=== PATIENT | male | born 1960 | race Caucasian/White ===

== ENCOUNTER 2018-01-09 09:49 | Emergency (ER) | payer OTHER ==
[~2018-01-09] VITALS: Ht 182.9 cm; Wt 101.2 kg
[2018-01-09 11:20] LABS: HEMATOCRIT 39.3 % (38.0-50.0); HEMOGLOBIN 12.5 G/DL (12.5-16.6); MCH 31.4 PG (29.0-34.0); MCHC 31.8 G/DL (30.0-36.0); MCV 98.7 FL (86-99); PLATELET COUNT 250 K/uL (156-360); RBC DIS.WIDTH-CV 13.7 % (11.8-14.6); RBC DIS.WIDTH-SD 50.2 % (39-53); RED BLOOD COUNT 3.98 M/uL (4.00-5.50); WHITE BLOOD COUNT 13.1 K/uL (4.1-10.2)
[2018-01-09 11:27] LABS: ALBUMIN 3.9 g/dL (3.2-4.8); CHLORIDE 115 mEq/L (99-109); POTASSIUM 4.1 mEq/L (3.7-5.4); SODIUM 150 mEq/L (136-147)
[2018-01-09 11:29] LABS: GLUCOSE 96 mg/dL (70-99)
[2018-01-09 11:30] LABS: TOTAL PROTEIN 6.8 g/dL (6.4-8.3)
[2018-01-09 11:31] LABS: TOTAL BILIRUBIN 0.8 mg/dL (0.0-1.0)
[2018-01-09 11:33] LABS: ALKALINE PHOSPHATASE 144 IU/L (3-129); CREATININE 1.3 mg/dL (0.6-1.3); GFR ESTIMATE (CALCULATED) > 59 mL/min/ (58.99-99999)
[2018-01-09 11:34] LABS: UREA NITROGEN (BUN) 13 mg/dL (9-23)
[2018-01-09 11:35] LABS: AST (GOT) 18 IU/L (2-34)
[2018-01-09 11:36] LABS: ALT (GPT) 17 IU/L (3-49)
[2018-01-09 11:39] LABS: TROP-I INTERPRETATION NEGATIVE; TROPONIN-I < 0.01 ng/mL (0.0-0.30)
[2018-01-09 12:15] LABS: APPEARANCE SL.HAZY ((CLEAR)); BILIRUBIN NEGATIVE; BLOOD SMALL; COLOR STRAW ((YELLOW)); GLUCOSE (STRIP) NEGATIVE; KETONES NEGATIVE; LEUKOCYTES TRACE; NITRITE NEGATIVE; PROTEIN (STRIP) NEGATIVE; SPECIFIC GRAVITY 1.005 (1.000-1.030); UROBILINOGEN 0.2 MG/DL (0.2-1.0)
[2018-01-09 12:23] LABS: BACTERIA NONE SEEN /HPF; EPITHELIAL CELLS RARE /HPF; MUCUS NONE SEEN /LPF; RED BLOOD CELLS 0-5 /HPF (0-5); UCUL ADDED? YES
[2018-01-09] MEDS ORDERED: LEVAQUIN750 MG PO (12:54)
[2018-01-09 14:12] VITALS: BP 120/65
== END 2018-01-09 14:14 | disposition home or self-care (01) ==
LOC: EME 09:49
PROVIDERS: Emergency Medicine Emergency Medical Services
DX: N39.0 Urinary tract infection, site not specified (principal); R26.9 Unspecified abnormalities of gait and mobility; M79.605 Pain in left leg; R53.1 Weakness; F20.9 Schizophrenia, unspecified; F17.200 Nicotine dependence, unspecified, uncomplicated; Z88.7 Allergy status to serum and vaccine; F32.9 Major depressive disorder, single episode, unspecified
CPT/HCPCS: 70450; 71046; 80053; 80178; 81003; 84484; 85027; 87086; 93005; 99281; 99285

== ENCOUNTER 2018-01-21 11:49 | Emergency (ER) | payer OTHER ==
[~2018-01-21] VITALS: Ht 185.4 cm; Wt 99.9 kg
[~2018-01-21 11:49] MED LIST: LEVAQUIN750 MG PO
[2018-01-21 13:40] LABS: APPEARANCE CLEAR ((CLEAR)); BILIRUBIN NEGATIVE; BLOOD NEGATIVE; COLOR STRAW ((YELLOW)); GLUCOSE (STRIP) NEGATIVE; KETONES NEGATIVE; LEUKOCYTES TRACE; NITRITE NEGATIVE; PROTEIN (STRIP) NEGATIVE; SPECIFIC GRAVITY 1.005 (1.000-1.030); UROBILINOGEN 0.2 MG/DL (0.2-1.0)
[2018-01-21 13:43] LABS: BACTERIA NONE SEEN /HPF; EPITHELIAL CELLS NONE SEEN /HPF; MUCUS NONE SEEN /LPF; RED BLOOD CELLS 0-5 /HPF (0-5)
[2018-01-21 13:59] LABS: HEMATOCRIT 42.3 % (38.0-50.0); HEMOGLOBIN 13.4 G/DL (12.5-16.6); MCH 31.5 PG (29.0-34.0); MCHC 31.7 G/DL (30.0-36.0); MCV 99.5 FL (86-99); PLATELET COUNT 270 K/uL (156-360); RBC DIS.WIDTH-CV 14.2 % (11.8-14.6); RBC DIS.WIDTH-SD 51.9 % (39-53); RED BLOOD COUNT 4.25 M/uL (4.00-5.50); WHITE BLOOD COUNT 11.2 K/uL (4.1-10.2)
[2018-01-21 14:12] LABS: ALBUMIN 4.2 g/dL (3.2-4.8); CHLORIDE 118 mEq/L (99-109); POTASSIUM 4.1 mEq/L (3.7-5.4); SODIUM 154 mEq/L (136-147)
[2018-01-21 14:14] LABS: GLUCOSE 95 mg/dL (70-99); TOTAL PROTEIN 7.5 g/dL (6.4-8.3)
[2018-01-21 14:16] LABS: TOTAL BILIRUBIN 1.2 mg/dL (0.0-1.0)
[2018-01-21 14:18] LABS: ALKALINE PHOSPHATASE 182 IU/L (3-129); CREATININE 1.3 mg/dL (0.6-1.3); GFR ESTIMATE (CALCULATED) > 59 mL/min/ (58.99-99999)
[2018-01-21 14:19] LABS: UREA NITROGEN (BUN) 10 mg/dL (9-23)
[2018-01-21 14:20] LABS: AST (GOT) 20 IU/L (2-34)
[2018-01-21 14:21] LABS: ALT (GPT) 20 IU/L (3-49)
[2018-01-21 14:43] LABS: LIPASE 28 U/L (1.0-51.0)
[2018-01-21 15:07] VITALS: BP 132/84
== END 2018-01-21 15:07 | disposition home or self-care (01) ==
LOC: EME 11:49
PROVIDERS: Physician Assistant
DX: E87.0 Hyperosmolality and hypernatremia (principal); F20.9 Schizophrenia, unspecified; F32.9 Major depressive disorder, single episode, unspecified; F17.200 Nicotine dependence, unspecified, uncomplicated; Z87.440 Personal history of urinary (tract) infections
CPT/HCPCS: 80053; 80178; 81003; 83690; 85027; 87086; 90839; 99281; 99284

== ENCOUNTER 2018-03-18 10:34 | Emergency (ER) | payer OTHER ==
[~2018-03-18] VITALS: Ht 182.9 cm; Wt 99.5 kg
[2018-03-18 11:02] LABS: HEMOGLOBIN 13.3 G/DL (12.5-16.6); MCH 30.6 PG (29.0-34.0); MCHC 32.4 G/DL (30.0-36.0); MCV 94.5 FL (86-99); PLATELET COUNT 234 K/uL (156-360); RBC DIS.WIDTH-CV 12.6 % (11.8-14.6); RBC DIS.WIDTH-SD 43.8 % (39-53); RED BLOOD COUNT 4.34 M/uL (4.00-5.50); WHITE BLOOD COUNT 9.5 K/uL (4.1-10.2)
[2018-03-18 11:10] LABS: ALBUMIN 4.1 g/dL (3.2-4.8); CHLORIDE 113 mEq/L (99-109); SODIUM 145 mEq/L (136-147)
[2018-03-18 11:12] LABS: APPEARANCE CLEAR ((CLEAR)); BILIRUBIN NEGATIVE; BLOOD NEGATIVE; COLOR YELLOW ((YELLOW)); GLUCOSE (STRIP) NEGATIVE; KETONES NEGATIVE; LEUKOCYTES TRACE; NITRITE NEGATIVE; PROTEIN (STRIP) 30; SPECIFIC GRAVITY 1.006 (1.000-1.030); UROBILINOGEN 0.2 MG/DL (0.2-1.0)
[2018-03-18 11:13] LABS: GLUCOSE 114 mg/dL (70-99); TOTAL PROTEIN 7.7 g/dL (6.4-8.3)
[2018-03-18 11:15] LABS: TOTAL BILIRUBIN 0.9 mg/dL (0.0-1.0)
[2018-03-18 11:16] LABS: ALKALINE PHOSPHATASE 144 IU/L (3-129); CREATININE 1.3 mg/dL (0.6-1.3); GFR ESTIMATE (CALCULATED) > 59 mL/min/ (58.99-99999); SERUM ETHYL ALCOHOL < 10 mg/dL
[2018-03-18 11:18] LABS: AST (GOT) 20 IU/L (2-34); UREA NITROGEN (BUN) 17 mg/dL (9-23)
[2018-03-18 11:19] LABS: ALT (GPT) 30 IU/L (3-49)
[2018-03-18 11:21] LABS: BACTERIA NONE SEEN /HPF; EPITHELIAL CELLS RARE /HPF; MUCUS TRACE /LPF; RED BLOOD CELLS 0-5 /HPF (0-5); UCUL ADDED? YES
[2018-03-18 11:23] LABS: AMPHETAMINE NEGATIVE (500 ng/mL); BARBITURATES NEGATIVE (200 ng/mL); BENZODIAZEPINES NEGATIVE (150 ng/mL); BUPRENORPHINE NEGATIVE (10 ng/mL); COCAINE NEGATIVE (150 ng/mL); METHADONE NEGATIVE (200 ng/mL); METHAMPHETAMINE NEGATIVE (500 ng/mL); OPIATES (MORPHINE) NEGATIVE (100 ng/mL); OXYCODONE NEGATIVE (100 ng/mL); PHENCYCLIDINE NEGATIVE (25 ng/mL); PROPOXYPHENE NEGATIVE (300 ng/mL); THC CANNABINOIDS NEGATIVE (50 ng/mL); TRICYCLIC ANTIDEPRESSANTS PRESUMPTIVE POSITIVE (300 ng/mL)
[2018-03-19] MEDS ORDERED: LOVASTATIN40 MG PO (10:25)
[2018-03-19] MEDS ORDERED: QUETIAPINE FUM400 MG PO (10:26)
[2018-03-19] MEDS ORDERED: ASPIR-LOW81 MG PO (10:26)
[2018-03-19] MEDS ORDERED: RISPERIDONE4 MG PO (10:27)
[2018-03-19] MEDS ORDERED: MOBIC7.5 MG PO (10:29)
[2018-03-19 12:41] VITALS: BP 163/95
== END 2018-03-19 12:45 ==
LOC: EME 10:34
PROVIDERS: Emergency Medicine
DX: F20.9 Schizophrenia, unspecified (principal); F32.9 Major depressive disorder, single episode, unspecified; F17.200 Nicotine dependence, unspecified, uncomplicated; Z88.7 Allergy status to serum and vaccine
CPT/HCPCS: 80053; 81003; 85027; 87086; 90837; 99281; 99285; G0480; J1630; J2060

== ENCOUNTER → 2018-04-14 | Outpatient (CLI) | payer OTHER ==
[~2018-04-14] MED LIST changes: +ASPIR-LOW81 MG PO; +LOVASTATIN40 MG PO; +MOBIC7.5 MG PO; +QUETIAPINE FUM400 MG PO; +RISPERIDONE4 MG PO
== END | disposition home or self-care (01) ==
LOC: RAD 13:25
DX: M16.0 Bilateral primary osteoarthritis of hip (principal); R05 Cough; R09.89 Other specified symptoms and signs involving the circulatory and respiratory systems; M25.552 Pain in left hip; R26.2 Difficulty in walking, not elsewhere classified
CPT/HCPCS: 71046; 73522